=== PATIENT | female | born 1980 | race American Indian/Alaskan Native ===

== ENCOUNTER 2017-12-21 14:50 | Emergency (ER) | payer MEDICAID, SELFPAY ==
[2017-12-21 14:58] VITALS: BP 103/55; PULSE 73; RESP 14; TEMP 36.7; O2SAT 97; BMI 24.4
[2017-12-21 15:39] VITALS: BP 99/53; PULSE 65; RESP 12; TEMP 36.5; O2SAT 98
--- NOTE | 2017-12-21 15:51 | ED.ALCOHOL ---
HPI - Alcohol General Chief Complaint: Toxicology Problem Stated Complaint: Altered mental status Time Seen by Provider: 12/21/17 15:51 Source: patient Mode of arrival: ambulatory Limitations: no limitations History of Present Illness HPI narrative: The patient takes gabapentin and for anxiety and mental health issues. She also is a patient of a methadone clinic. She took 1500 known mg of gabapentin at 10:30 a.m. this morning, she did this due to insomnia, stating she has not slept for 2 days. Additionally she received her normal dose of methadone at 11:30 a.m. this morning. The methadone clinic asked her to be seen here because of the increased gabapentin dose. The patient is now sleepy. She denies confusion, chest pain, palpitations or dyspnea. She has had no nausea vomiting. She feels okay other than drowsy. Related Data Home Medications Medication Instructions Recorded Confirmed Unobtainable 12/21/17 12/21/17 Allergies Allergy/AdvReac Type Severity Reaction Status Date / Time haloperidol [From Haldol] Allergy Verified 12/21/17 14:58 Review of Systems Review of Systems All systems reviewed & are unremarkable except as noted in HPI and below Constitutional Denies chills, Denies fever(s), Denies lethargy and Denies weakness Eyes Denies blurry vision ENT Ears, Nose, Mouth, and Throat: Denies change in voice, Denies vertigo, Denies dizziness, Denies neck pain and Denies sore throat Cardiovascular Denies chest pain, Denies syncope, Denies irregular heart rhythm, Denies lightheadedness, Denies palpitations, Denies dyspnea, Denies dyspnea on exertion and Denies orthopnea Respiratory Denies cough, Denies dyspnea, Denies dyspnea on exertion and Denies wheezing Gastrointestinal Gastrointestinal: Denies abdominal pain, Denies change in bowel habits, Denies diarrhea, Denies nausea and Denies vomiting Genitourinary Reports other (No urinary complaints) Musculoskeletal Denies abnormal gait, Denies back pain and Denies neck pain Integumentary/Breasts Denies pruritus, Denies erythema, Denies rash and Denies wounds Neurologic Denies abnormal speech, Denies abnormal gait, Denies behavioral changes, Denies confusion, Denies vertigo, Denies dizziness, Denies syncope and Denies weakness Psychiatric Denies behavioral changes and Denies confusion Endocrine Denies palpitations Allergic/Immunologic Denies wheezing [facility] Medical History Anxiety (Acute) Methadone maintenance therapy patient (Acute) Exam Initial Vital Signs Initial Vital Signs: Vital Signs Temperature 98.1 F 12/21/17 14:58 Pulse Rate 73 12/21/17 14:58 Respiratory Rate 14 12/21/17 14:58 Blood Pressure 103/55 L 12/21/17 14:58 Pulse Oximetry 97 12/21/17 14:58 Const General: cooperative, healthy appearing, well developed, well groomed and other (Sleepy.) Nutritional Appearance: well nourished Orientation: oriented x3 and not confused HENDC Head: normocephalic and atraumatic Mouth: oral mucosae normal and moist mucous membranes Teeth and gingiva: dentition normal Throat: posterior oropharynx normal Eyes General: appearance normal, both eyes and all related structures Eyelids: eyelids normal Conjunctivae: conjunctivae normal Sclera: sclerae normal Pupils: PERRL EOM: EOM intact bilaterally Neck Neck: normal visual inspection, trachea midline, No lymphadenopathy, No midline deformity and No JVD Lymphatic: No lymphedema Chest Chest: normal inspection of the chest Resp Effort & Inspection: normal respiratory effort, able to speak in complete sentences, no respiratory distress and no use of accessory muscles Auscultation: clear to auscultation bilaterally, no rales, no rhonchi and no wheezes Cardio Rate: regular rate Rhythm: regular rhythm Heart Sounds: no click, no gallops, no murmurs and no rubs Pulses: normal peripheral pulses GI Inspection: non-distended Palpation: soft, no hepatosplenomegaly, No guarding, No pulsatile mass and No tender Auscultation: normal bowel sounds Back/Spine/Pelvis Back: No CVA tenderness Skin General: no rashes or lesions noted, No jaundice and No petechiae Neuro General: alert, oriented x3, gait normal, no focal motor deficits and other (Sleepy but arouses easily.) Speech: speech normal Extrem General: full ROM, no clubbing, cyanosis or edema, no pedal edema and no calf tenderness Course Hospital Course: It has been more than 5 hr since she took the gabapentin. The combination of medications was reviewed with [facility]. Toxic dose of gabapentin is 3500 mg. Her observation period has been adequate. She will be released. Orders Ordered: ED Orders 12/21/17 15:58 Urine Microscopic Stat Vital Signs - 8 hr 12/21/17 14:58 12/21/17 15:39 Temperature 98.1 F 97.7 F Pulse Rate 73 65 Respiratory Rate 14 12 Blood Pressure 103/55 L Blood Pressure [Left Arm] 99/53 L Pulse Oximetry 97 98 MDM - Alcohol Lab Data Labs: Lab Results 12/21/17 Range/Units 15:58 Urine RBC None seen (0-5/HPF) Urine WBC None seen (0-5/HPF) Ur Squamous Epith Cells 5-10 /hpf H Urine Bacteria None seen (None) Ur Culture Indicated? Cult not indicated Micro UA Comment Not Reportable MDM Narrative Medical decision making narrative: I have discussed the use of medications beyond prescribing limitations and the danger thereof with the patient. Discharge Plan Departure Patient Disposition: Home, Self-Care Clinical Impression: Insomnia, Acute drug overdose Instructions: DI for Insomnia Activity Restrictions/Additional Instructions: Use your medications only as prescribed. Follow up with your doctor regarding management of the insomnia. Prescriptions: No Action Unobtainable RF: 0
[2017-12-21 16:03] LABS: Bacteria Urine None Seen; RBC Urine None Seen (0-5/HPF); WBC Urine None Seen (0-5/HPF)
[2017-12-21 16:17] LABS: Culture Indicated Urine Cult Not Indicated; Squamous Epithelial Cell Urine 5-10 /HPF
--- NOTE | 2017-12-21 16:40 | PC.NURSE ---
Called poison control, talked to Luiz, stated 1500mg shouldn't have a adverse reaction. Stated 35 grams would be considered mild to moderate adverse reaction with no reaction between methadone and gabapentin.
[2017-12-21 16:52] VITALS: BP 90/52; PULSE 68; RESP 21; O2SAT 97
[2017-12-21 17:07] VITALS: BP 99/57; PULSE 71; RESP 12; O2SAT 95
== END 2017-12-21 17:10 | disposition home or self-care (01) ==
LOC: ED 16:58
PROVIDERS: Emergency Provider Emergency Medicine
DX: T42.6X1A Poisoning by other antiepileptic and sedative-hypnotic drugs, accidental (unintentional), initial encounter (principal); G47.00 Insomnia, unspecified
CPT/HCPCS: 81003; 81015; 81025; 99282; 99283